=== PATIENT | female | born 1985 | race Caucasian/White ===

== ENCOUNTER → 2018-02-26 07:34 | Outpatient (CLI) | payer OTHER, SELFPAY ==
[2018-02-26 08:22] LABS: Add Manual Diff / Slide Review NO; Basophils Percent Auto 1.9 % (0-2); Eosinophils Percent Auto 0.9 % (2-4); Hematocrit 36.3 % (36-46); Hemoglobin 12.2 g/dL (12.0-16.0); Mean Corpuscular HGB Conc 33.6 % (30-36); Mean Corpuscular Hemoglobin 32.7 PG (26-34); Mean Corpuscular Volume 97.4 fL (80-100); Monocytes Percent Auto 6.7 % (3-14); Neutrophils Absolute Auto 2500 /uL (3000-5900); Neutrophils Percent Auto 52.5 % (50-75); Platelet Count 292 X10^3/uL (150-400); Red Blood Cell Count 3.73 X10^6/uL (4.0-5.2); Red Cell Distribution Width 12.8 % (11.6-14.8); White Blood Cell Count 4.7 X10^3/uL (4.5-11.0)
[2018-02-26 08:42] LABS: Albumin 4.8 g/dL (3.5-5.0); BUN Creatinine Ratio 12.5 (6-22); Blood Urea Nitrogen 10 mg/dL (7-17); Calcium 9.1 mg/dL (8.4-10.2); Carbon Dioxide 27 mmol/L (22-32); Chloride 106 mmol/L (98-107); Cholesterol 193 mg/dL (140-199); Estimated Glomerular Filt Rate > 60.0 mL/min (>60); Glucose 85 mg/dL (70-100); HEMOLYSIS < 15 (0-50); Potassium 4.3 mmol/L (3.4-5.1); Sodium 143 mmol/L (137-145); Total Protein 7.5 g/dL (6.3-8.2); Triglycerides 46 mg/dL (35-150)
[2018-02-26 08:52] LABS: HDL Cholesterol 130 mg/dL (40-60); LDL Cholesterol Calculated 54 mg/dL (<100)
[2018-02-26 08:55] LABS: Free T3, Triiodothyronine Free 2.81 pg/mL (2.77-5.27); Free T4, Direct Thyroxine 0.83 ng/dL (0.78-2.19)
[2018-02-26 09:09] LABS: Thyroid Stimulating Hormone 1.74 uIU/mL (0.47-4.68)
[2018-02-26 09:27] LABS: Vitamin B12 415 pg/mL (239-931)
[2018-02-28 14:47] LABS: Thyroid Peroxidase Antibodies 1 IU/mL (< 9)
[2018-02-28 23:54] LABS: ANA Screen NEGATIVE (Negative); DNA Antibody Crithidia IFA NEGATIVE (Negative); Rheumatoid Factor <14 IU/mL; Sjogren Antiboday SS-A <1.0 NEG AI (<1.0 NEGATIVE); Sjogren Antiboday SS-B <1.0 NEG AI (<1.0 NEGATIVE); Sm Antibody <1.0 NEG AI (<1.0 NEGATIVE); Sm/RNP Antibody <1.0 NEG AI (<1.0 NEGATIVE)
== END ==
PROVIDERS: Visit Provider Student in an Organized Health Care Education/Training Program
DX: E03.9 Hypothyroidism, unspecified (principal); K31.84 Gastroparesis; K59.09 Other constipation; R53.83 Other fatigue; Z13.220 Encounter for screening for lipoid disorders
CPT/HCPCS: 36415; 80048; 80061; 82040; 82306; 82607; 84155; 84439; 84443; 84481; 85025; 86038; 86376; 86430

== ENCOUNTER → 2019-04-29 15:14 | Outpatient (CLI) | payer OTHER, SELFPAY ==
[2019-04-29 16:51] LABS: Alanine Aminotransferase 14 IU/L (<35); Albumin Globulin Ratio 1.7 (1.0-2.8); Alkaline Phosphatase 56 U/L (38-126); Aspartate Aminotransferase 27 IU/L (14-36); BUN Creatinine Ratio 12.5 (6-22); Blood Urea Nitrogen 10 mg/dL (7-17); Calcium 10.3 mg/dL (8.4-10.2); Carbon Dioxide 24 mmol/L (22-32); Chloride 100 mmol/L (98-107); Estimated Glomerular Filt Rate > 60.0 mL/min (>60); Glucose 73 mg/dL (70-100); HEMOLYSIS < 15 (0-50); Magnesium 2.1 mg/dL (1.6-2.3); Phosphorous 3.9 mg/dL (2.5-4.5); Potassium 5.2 mmol/L (3.4-5.1); Sodium 138 mmol/L (137-145)
[2019-04-29 16:58] LABS: Prealbumin 20.4 mg/dL (17.6-36.0)
[2019-04-29 17:19] LABS: TSH w/ Reflex to FT4 1.78 uIU/mL (0.47-4.68)
== END ==
PROVIDERS: PCP Student in an Organized Health Care Education/Training Program; Visit Provider Student in an Organized Health Care Education/Training Program
DX: R00.1 Bradycardia, unspecified (principal); R63.0 Anorexia
CPT/HCPCS: 36415; 80053; 83735; 84100; 84134; 84443

== ENCOUNTER → 2020-06-07 14:11 | Outpatient (CLI) | payer OTHER, SELFPAY ==
--- NOTE | 2020-06-07 14:13 | DI.MG.S_ITS ---
BILATERAL DIGITAL DIAGNOSTIC MAMMOGRAM 3D/2D: 06/07/2020 CLINICAL: Left breast pain. Baseline exam. No prior exams were available for comparison. The tissue of both breasts is extremely dense, which lowers the sensitivity of mammography. No significant masses, calcifications, or other findings are seen in either breast. IMPRESSION: NEGATIVE There is no abnormality seen in the left breast or in the left axilla to correspond with the pain in the outer aspect and in the left axilla, however, clinical followup is recommended. There is no mammographic evidence of malignancy. A screening mammogram is recommended in 5 years. This exam was interpreted at Station ID: [id number]. NOTE: For mammograms, a report in lay terms will be sent to the patient. Approximately 15% of breast malignancies will not be visualized mammographically. In the management of a palpable breast mass, a negative mammogram must not discourage biopsy of a clinically suspicious lesion. Electronically Signed By: Bubba Hernandez M.D. [email or web address]/:06/07/2020 14:41:28 letter sent: Clinical Evaluation ACR BI-RADS Category 1: Negative [id number]
== END ==
PROVIDERS: PCP Student in an Organized Health Care Education/Training Program; Referring Provider Nurse Practitioner Family; Visit Provider Nurse Practitioner Family
DX: R92.2 Inconclusive mammogram (principal); N64.4 Mastodynia; M79.622 Pain in left upper arm
CPT/HCPCS: 77066; G0279

== ENCOUNTER → 2020-08-02 16:17 | Outpatient (CLI) | payer OTHER, SELFPAY ==
--- NOTE | 2020-08-02 16:18 | DI.RAD.S_ITS ---
PROCEDURE: XR CHEST 2V INDICATIONS: Screening; immigration requirement TECHNIQUE: 2 views of the chest were acquired. COMPARISON: None. FINDINGS: Surgical changes and devices: None. Lungs and pleura: Lungs are clear. No pleural effusions or pneumothorax. Mediastinum: Mediastinal contours are normal. Heart size is normal. Bones and chest wall: No suspicious bony abnormalities. Soft tissues appear unremarkable. IMPRESSION: Negative examination. Dictated by: Arjun Carl M.D. on 08/02/2020 at 16:51 Approved by: Arjun Carl M.D. on 08/02/2020 at 16:52
[2020-08-02 19:21] LABS: HIV 1 & 2 Ab/Ag 4th Gen Combo NEGATIVE (NEGATIVE)
== END ==
PROVIDERS: PCP Student in an Organized Health Care Education/Training Program; Referring Provider Student in an Organized Health Care Education/Training Program; Visit Provider Student in an Organized Health Care Education/Training Program
DX: Z02.89 Encounter for other administrative examinations (principal)
CPT/HCPCS: 36415; 71046; 86592; 87389